=== PATIENT | female | born 1955 | race African-American/Black ===

== ENCOUNTER 2019-03-27 10:49 | Emergency (ER) | payer BC, SELFPAY ==
--- NOTE | 2019-03-27 13:12 | RAD ---
XR Chest Pa Lat STANDARD HISTORY: Cough and congestion COMPARISON: 12/03/2014 FINDINGS: The heart is mildly enlarged. The lungs are expanded without lobar or torsion, pneumothorac es, maurice pulmonary edema or pleural effusions. IMPRESSION: No radiographic evidence of acute cardiopulmonary process.
== END 2019-03-27 13:24 | disposition home or self-care (01) ==
LOC: ERS 10:49
DX: J06.9 Acute upper respiratory infection, unspecified (principal); I10 Essential (primary) hypertension
CPT/HCPCS: 71046

== ENCOUNTER 2020-11-05 23:51 | Emergency (ER) | payer OTHER ==
[2020-11-06] MEDS ORDERED: Ondansetron ODT 8 MG TAB ONE (00:57)
== END 2020-11-06 01:12 | disposition home or self-care (01) ==
LOC: ERS 23:51
DX: R11.0 Nausea (principal); I10 Essential (primary) hypertension; Z79.899 Other long term (current) drug therapy; V89.2XXA Person injured in unspecified motor-vehicle accident, traffic, initial encounter
CPT/HCPCS: 99283; Q0162

== ENCOUNTER 2021-09-29 18:12 | Emergency (ER) | payer OTHER ==
[2021-09-29] MEDS ORDERED: diphenhydrAMINE 25 MG CAP ONE ×2 (19:54→20:27)
[2021-09-29] MEDS ORDERED: Bacitracin 1 PK ONE ×2 (19:54→20:27)
== END 2021-09-29 20:40 | disposition home or self-care (01) ==
LOC: ERS 18:12
DX: T63.461A Toxic effect of venom of wasps, accidental (unintentional), initial encounter (principal)
CPT/HCPCS: 99282